=== PATIENT | female | born 1970 | race African-American/Black ===

== ENCOUNTER 2018-05-14 13:23 | Emergency (ER) | payer BC, OTHER ==
[2018-05-14] MEDS ORDERED: ONDANSETRON 4 MG/2 ML VIAL IVPB ONE (13:38)
[2018-05-14] MEDS ORDERED: SODIUM CHLORIDE 1,000 ML IV ONE (13:38)
[2018-05-14] MEDS ORDERED: KETOROLAC TROMETHAMINE 30 MG/1 ML VIAL IVPUSH ONE (13:42)
--- NOTE | 2018-05-14 13:42 | PDOC ---
History of Present Illness - General Chief Complaint: Pain Stated Complaint: ABD PAIN, VOMITING Time Seen by Provider: 05/14/18 13:25 History Source: Patient Exam Limitations: No Limitations - History of Present Illness Travel History: No Initial Comments: 05/14/18 13:39 47y F no pmhx presents with abd pain and vomiting. The patient states she has had a URI the past few weeks, went to [facility] and was given rx for azithromycin on . She has been fine until today around 11am when she started feeling R sided abdominal pain and started feeling nauseus after eating waffles at a diner. The pain was very severe, she went to urgent care, vomited with some improvement of her abd pain. But pain has been getting worse again and has multiple episodes of yellowish vomit. no fever/chills. pt notse a few episodes of loose stools the past day or two, but not very watery, no associated blood/ melena. never had this pain in the past no recent travel or known sick contacts hx of fibroid surger im the past Past History - Past Medical History Allergies/Adverse Reactions: Allergies Allergy/AdvReac Type Severity Reaction Status Date / Time Penicillins Allergy Severe RESPIRATORY Verified 05/14/18 13:27 DISTRESS Home Medications: Ambulatory Orders Azithromycin 250 mg PO ASDIR 05/14/18 Anemia: Yes Asthma: No Cancer: No Cardiac Disorders: No CVA: No COPD: No CHF: No Dementia: No Diabetes: (GESTATIONAL) GI Disorders: No Disorders: No HTN: No Hypercholesterolemia: No Liver Disease: No Seizures: No Thyroid Disease: No - Surgical History Abdominal Surgery: No Appendectomy: No Cardiac Surgery: No Cholecystectomy: No Lung Surgery: No Neurologic Surgery: No Orthopedic Surgery: No - Suicide/Smoking/Psychosocial Hx Smoking History: Never smoked Have you smoked in the past 12 months: No Number of Cigarettes Smoked Daily: 2 If you are a former smoker, when did you quit?: 06/2012 Information on smoking cessation initiated: No Hx Alcohol Use: (occasional) Drug/Substance Use Hx: No Substance Use Type: Alcohol Hx Substance Use Treatment: No Review of Systems - Review of Systems Able to Perform ROS?: Yes Comments:: 05/14/18 13:46 Constitutional - no reported Fever, Chills, HEENT: no reported vision changes, sore throat Respiratory: no reported cough, sob, hemoptysis Cardiac: no reported chest pain, palpitations, light headedness, leg swelling Abd/GI: +abd pain, nausea, vomiting, no reported blood per rectum, melena, diarrhea : no reported dysuria, frequency, discharge Musculskelatal - no reported back pain, joint swelling skin - no reported bruising, erythema, rash neurological: no reported headache, numbness, focal weakness, tingling, ataxia, hematologic: no reported easy bruising, easy bleeding *Physical Exam - Vital Signs Last Vital Signs Temp Pulse Resp BP Pulse Ox 97.9 F 65 18 183/99 H 100 05/14/18 13:23 05/14/18 13:23 05/14/18 13:23 05/14/18 13:23 05/14/18 13:23 - Physical Exam Comments: 05/14/18 13:46 GENERAL: The patient is awake, alert, and fully oriented, uncomfortable apparing , vomiting HEAD: Normocephalic, atraumatic. EYES: extraocular movements intact, sclera anicteric, conjunctiva clear. ENT: Normal voice, Moist mucous membranes. NECK: Normal range of motion, supple LUNGS: Breath sounds equal, clear to auscultation bilaterally. No wheezes, no rhonchi, no rales. HEART: Regular rate and rhythm, normal S1 and S2 without murmur, rub or gallop. ABDOMEN: Soft, nontender, No guarding, no rebound. . No CVA tenderness EXTREMITIES: Normal range of motion, no edema. NEUROLOGICAL: No facial assymetry, Normal speech, PSYCH: Normal mood, normal affect. SKIN: Warm, Dry, normal turgor, Moderate Sedation - Procedure Monitoring Vital Signs: Procedure Monitoring Vital Signs Temperature 97.9 F 05/14/18 13:23 Pulse Rate 65 05/14/18 13:23 Respiratory Rate 18 05/14/18 13:23 Blood Pressure 183/99 H 05/14/18 13:23 O2 Sat by Pulse Oximetry (%) 100 05/14/18 13:23 ED Treatment Course - LABORATORY CBC & Chemistry Diagram: 05/14/18 13:41 05/14/18 13:41 Medical Decision Making - Medical Decision Making 05/14/18 13:47 suspect kidney stones, consider gall stones, appendicitis will ck UA, labs toradol, zofran, fluids for symptmatic relief 01/05/19 16:09 pts labs reviewed ua noted for hematuria CT abd noted for R sided hydro but no kidne stone visible. suggestive of passed stone. on exam pt is asymptmatic. notes that she felt [facility] better aroudn the time she got the CT, but was attributing it to her pain meds. she has urinated multiple times here. suspect she passed a stone. will have her fu with pmd to have her hydro rechecked erturn precautions were discussed I discussed the physical exam findings, ancillary test results and final diagnoses with the patient. I answered all of the patient's questions. The patient was satisfied with the care received and felt comfortable with the discharge plan and treatment plan. The patient will call their primary care physician within 24 hours to arrange follow-up and will return to the Emergency Department with any new, persistent or worsening symptoms. 05/14/18 16:17 pts BP was a bit elevated here. it has improved. i discussed with the pateint regarding her bp - states that she usually tends to run low - she will fu wth dr. bain and have her bp rechecked there. *DC/Admit/Observation/Transfer Diagnosis at time of Disposition: Kidney stone on right side Hydronephrosis Qualifiers: Hydronephrosis type: unspecified Qualified Code(s): N13.30 - Unspecified hydronephrosis - Discharge Dispostion Disposition: HOME Condition at time of disposition: Improved Decision to Admit order: No - Referrals Referrals: Reg Padilla [Primary Care Provider] - - Patient Instructions Printed Discharge Instructions: Hydronephrosis -- Adult, DI for Kidney Stones Additional Instructions: I suspect your pain may have been due to a kidney stone. However a kidney stone was not visualized on your CT scan but there is residual swelling of your kidney suggestive of a recent kidney stone. Follow up with Dr. Bain to reassess the swelling in your kidney to ensure it resolves. If you have any recurrent pain, fevers, vomiting, or other concerns return to the Emergency department immediately. Follow up with your surgeon regarding your procedure on wednesday. Print Language: TURKISH - Post Discharge Activity
[2018-05-14 13:45] LABS: URINE APPEARANCE Clear; URINE BILIRUBIN Negative (NEGATIVE); URINE COLOR Yellow; URINE GLUCOSE (UA) Trace (NEGATIVE); URINE KETONE 1+ (NEGATIVE); URINE LEUK ESTERASE Negative (NEGATIVE); URINE NITRITE Negative (NEGATIVE); URINE PROTEIN 1+ (NEGATIVE); URINE UROBILINOGEN 0.2 (0.2-1.0)
[2018-05-14] MEDS ORDERED: ONDANSETRON 4 MG/2 ML VIAL ONE (13:47)
[2018-05-14] MEDS ORDERED: KETOROLAC TROMETHAMINE 30 MG/1 ML VIAL ONE (13:47)
[2018-05-14 13:51] LABS: HCG,QUALITATIVE URINE Negative
[2018-05-14 13:53] LABS: EPI CELLS 1+ /HPF; HEMATOCRIT 50.7 % (32.4-45.2); HEMOGLOBIN 16.5 GM/dl (10.7-15.3); MCH 29.4 pg (25.7-33.7); MCHC 32.5 g/dl (32.0-36.0); MEAN CELL VOLUME 90.4 fl (80-96); MEAN PLT VOLUME 11.1 fl (7.5-11.1); PLATELET COUNT 225 K/MM3 (134-434); RBC 5.61 M/mm3 (3.60-5.2); RDW 13.5 % (11.6-15.6); URINE RBC 0-2 /hpf (0-3); URINE WBC 0-2 (0-5); WHITE BLOOD COUNT 9.7 K/mm3 (4.0-10.8)
[2018-05-14 14:03] VITALS: TEMP 97.9; BMI 35.9
[2018-05-14 14:05] LABS: ALBUMIN 4.3 g/dl (3.5-5.0); ALK PHOS 78 U/L (32-92); ANION GAP 9 MMOL/L (8-16); BILIRUBIN,TOTAL 0.5 mg/dl (0.2-1.0); BLOOD UREA NITROGEN 9 mg/dl (7-18); CALCIUM 8.9 mg/dl (8.4-10.2); CHLORIDE 102 mmol/L (98-107); CO2 24 mmol/L (22-28); CREATININE 0.8 mg/dl (0.6-1.3); GLUCOSE,RANDOM 162 mg/dl (74-106); POTASSIUM 3.5 mmol/L (3.5-5.1); SGOT/AST 19 U/L (10-42); SGPT/ALT 21 U/L (10-40); SODIUM 135 mmol/L (136-145); TOT PROT 7.9 g/dl (6.4-8.3)
[2018-05-14] MEDS ORDERED: METOCLOPRAMIDE HCL INJECTION 10 MG/2 ML VIAL IVPUSH ONE (14:31)
[2018-05-14] MEDS ORDERED: morphine CARPU-JECT 2 MG/1 ML DISP.SYRIN IVPUSH ONE (14:31)
[2018-05-14] MEDS ORDERED: METOCLOPRAMIDE HCL INJECTION 10 MG/2 ML VIAL ONE (14:34)
[2018-05-14] MEDS ORDERED: morphine SULFATE 4 MG/ML VIAL ONE (14:34)
[2018-05-14 15:52] LABS: LIPASE 213 U/L (73-393)
[2018-05-14 16:27] VITALS: BP 158/89; PULSE 82
== END 2018-05-14 16:25 | disposition home or self-care (01) ==
LOC: FER 13:23
PROC: 3E0333Z Introduction of Anti-inflammatory into Peripheral Vein, Percutaneous Approach (ICD-10-PCS; principal; 2018-05-14)
PROC: 3E033GC Introduction of Other Therapeutic Substance into Peripheral Vein, Percutaneous Approach (ICD-10-PCS; 2018-05-14)
PROC: 3E033NZ Introduction of Analgesics, Hypnotics, Sedatives into Peripheral Vein, Percutaneous Approach (ICD-10-PCS; 2018-05-14)
PROC: 3E0337Z Introduction of Electrolytic and Water Balance Substance into Peripheral Vein, Percutaneous Approach (ICD-10-PCS; 2018-05-14)
DX: N13.30 Unspecified hydronephrosis (principal); N20.0 Calculus of kidney; Z87.891 Personal history of nicotine dependence
CPT/HCPCS: 36415; 74176; 80053; 81003; 81015; 83690; 84703; 85027; 99285-25; J7030